=== PATIENT | female | born 1975 | race Caucasian/White ===

== ENCOUNTER 2017-08-06 13:40 | Outpatient (RCR) | payer OTHER, MEDICAID, SELFPAY ==
--- NOTE | 2017-08-06 16:11 | HP.OTFCE_ITS ---
HP OT Functional Capacity Eval - Task Lift Floor (Occasional 1-33% of Day): 15 lbs Floor (Frequent 34-66% of Day): 8 lbs Floor (Constant 67-100% of Day): negligible Floor PDL: Sedentary-Light Knee (Occasional 1-33% of Day): 15 lbs Knee (Frequent 34-66% of Day): 8 lbs Knee (Constant 67-100% of Day): negligible Knee PDL: Sedentary-Light Waist (Occasional 1-33% of Day): 15 lbs Waist (Frequent 34-66% of Day): 8 lbs Waist (Constant 67-100% of Day): negligible Waist PDL: Sedentary-Light Shoulder (Occasional 1-33% of Day): 15 lbs Shoulder (Frequent 34-66% of Day): 8 lbs Shoulder (Constant 67-100% of Day): negligible Shoulder PDL: Sedentary-Light Overhead (Occasional 1-33% of Day): 15 lbs Overhead (Frequent 34-66% of Day): 8 lbs Overhead (Constant 67-100% of Day): negligible Overhead PDL: Sedentary-Light - Reference Duration Sedentary Sedentary Light Light Light Medium Medium Medium Heavy Very Heavy Heavy Occasional (0-33% of day) Frequent (34-66% of day) Constant (67-100% of day) 10 # Negligible Negligible 15 # 8 # Negligible 20 # 10# Negli. 35 # 18 # 7 # 50 # 25 # 10 # 75 # 100 # >100 # 38 # 50 # >50 # 15 # 20 # >20 # - Patient Information Height: 1.6 m Weight:: 335 kg Hand Dominance: R - Medical History Medical History Including Restrictions: No medical restrictions noted at this time. - Diagnoses Diagnoses: PMHx: morbid obesity, h/o RA, chronic low back pain, h/o DVT, muscle spasms, fibromyalgia. Per Pt. report notes nerve damage in low back. Notes no new changes in medical status since last FCE. - Symptoms Symptoms: Pt. notes main symptom is pain in low back and B legs. Notes increased pain when standing. Stated on occassion will have numbness and tingling in B LE when standing. - Pain Pain: Pt. noted pain in sitting position prior to start of session 06/28. Pt. notes taking tyenold prior to coming to FCE. Not in pain management program. - Work History Work History: Pt. notes last job 2007. 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 Notes had to leave that job due to lack of ability to walk into work due to back pain. She further notes she went on disability after leaving job in 2007. 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 - ADLS ADLS: Pt. lives in house with parents. She notes father just had CVA and mother has dementia. She is helping care for elderly parents. No stairs to get into home, FFSU with basement. There are 15 steps to the basement if needing to go. Notes three steps through garage enterance. Notes backdoor has a ramp as father is in w/c. She is able to push dad in w/c. Notes walking is sometimes better pushing something. She notes she does cleaning, and has FFSU for laundry in [facility] she completes. Able to complete all ADls (I). Able to use walk-in shower with seat with mdo I. Does need to sit to shower. Notes that she is still driving, is able to grocery shopping at smaller store or [employer]. - Physical Examination Physical Examination: Pt., Aliyah, arrived for FCE on this date. She notes that she has h/o RA butdoes not consistently see rheumatologst. Her last FCE completed in 2014 and she has been on dsiability since 2007. Aliyah has h/o low back pain and geenralized arthtitis throughout body. She completed as tasks but needed increased breaks t/o session due to decreased endurance and SOB. Further performance can reviewed above and below. She has automation tender training from previous job. She would benefit pain management program and seeing trimming machine operator as some of pain symptoms may be related to RA and fibromyaglia. Performance today classifies he in Sendentary Light wrok category which appears to be improvement from last FCE in 2014 complete at [facility]. ROM: Pt. B UE ROM WFL. Notes increased pain in R shoulder at 2/10. B LE ROM is WFL. Knee flex and extension are limited due to increased soft tissue. She does have h/o RA. Currenty not seeing RA doctor at this time. Strength: B UE. deltoids: R 4-/5, L 4-/5. biceps: R 4-/5, L 4-/5. triceps: R 4/5, L 4/5. LE. Hip Flexors: R 3+/5 some increased hip pain, L 3+/5. Hamstrings: R 3/5, L 3/5. Hip adductors: R 3/5, L 3/5. Quadraceps: 3+/5, L 3+ /5. Dorsi flexion: 3+/5, L 3+/5 Right Chiller Operator Strength Average: 45.66 Left Chiller Operator Strength Average: 40.33 Right Lateral Pinch Average: 9.66 Left Lateral Pinch Average: 10.66 Right Tripod Pinch Average: 6.00 Left Tripod Pinch Average: 7.66 Sensation: Pt. notes that she got some numbness and tingling in hands post gripa dn pinch assessment. Notes some increased numbness and tingling at times in LE. R 2 nd 3.84, 3rd 3.22, 4th 3.61, 5th 3.22, thumb 3.61. L 2 nd 3.22, 3rd 3.61 , 4th 3.22, 5th 3.22, thumb 3.61 Fine Motor: FMC is intact and WFL. R: 23.20 s. L: 22.88 s Balance: Balance is G/F+. - Non Material Handling Activities Bendinx, 10x , needed seated break for 2x mins. Pain increased to 5/10 with need for seated break. Completed Squattinx unable to complete additonal reps. Notes unabel to complete more squats . Needed seated break post 3x squats. Increased pain in L knee 6/10 pain. Kneeling: Unable to kneel at this time. Reaching out/up: From seated position: 3x, 10x, 10x fast. R shoulder pain at 5 /10. From seated position: Reaching up: 3x, 10x, 10x fast. Some increased SOB. Pain in shoulder increased to 7/10. Able to obtain approximately 100 degrees. Walking: Completed 10 mins functional mobility around facility. Need 2-3 min break after 5 mins consistent walking. Increased pain in L knee at about 7-9 mins. Increased antalgic gait as pain increased. Discontinued at 7.5/10 pain when discontinuing task around 10 mins. Needs 5-7 mins seated break when back to OT area. Standin mins of standing prior to needing seated break. The knee pain over 7 /10, low back at 5/10. Sittin-40 mins. Could have sat longer. Leight shift as needed. No increased in pain while sitting. Notes most comofrtable position is a half reclined position. Climbing Stairs: Able to complete 10 stairs with us eof B hand rails. Completed ascention with alternating fot pattern and decentionw ith L LE lead. Increased pain and noted does not complete cosnsitently. - Dynamic Occasional Lifting Capacity Floor Lift: 15 lbs. Poor body mechanics of increased throacic flexion and decreased knee flexion. Increased lifting with straight leg to compensate for increased L knee pain. KARLY was good for lift. Pain at about 6/10. Performance classifies her at 'Sedentary Light' wrok category. Knee Lift: 15 lbs. Completed with fair body mechanics. Adquet hip, knee flexion observed. Lifted close to body and KARLY adquet at this time. Pain maintained at 6/10. Performance classifies her at 'Sedentary Light' wrok category. Waist Lift: 15 lbs. Completed with fair body mechanics. Some increased thoracic flexion during take off decreasing spinal alignment. After lift off she has increased trunk extension. Pain maintained at 6/10. Performance classifies her at 'Sedentary Light' wrok category. Shoulder Lift: 15 lbs. Completed with fair body mechanics. Some increased thoracic ext, increased cervical flexion. Pain maintained at 6/10. Performance classifies her at 'Sedentary Light' wrok category. Overhead Lift: 15 lbs. Good body mechanics. Some increased cervical flexion and holding of breath for moveemnt. Completed Carrying: Pt. refused to complete with box and worried about balance. Completed with 2x 10 lbs hand weights. 6/10 pain. Performance classifies her at ' Sedentary Light' wrok category.
--- NOTE | 2017-08-06 16:11 | HP.OTFCE.D ---
FCE D/C Summary - Discharge HERSON Aquiles FAUST was seen for a one time visit for an FCE on 08/06/17 and is discharged.
--- NOTE | 2017-08-07 12:11 | HP.OTFCE_ITS ---
HP OT Functional Capacity Eval - Task Lift Floor (Occasional 1-33% of Day): 15 lbs Floor (Frequent 34-66% of Day): 8 lbs Floor (Constant 67-100% of Day): negligible Floor PDL: Sedentary-Light Knee (Occasional 1-33% of Day): 15 lbs Knee (Frequent 34-66% of Day): 8 lbs Knee (Constant 67-100% of Day): negligible Knee PDL: Sedentary-Light Waist (Occasional 1-33% of Day): 15 lbs Waist (Frequent 34-66% of Day): 8 lbs Waist (Constant 67-100% of Day): negligible Waist PDL: Sedentary-Light Shoulder (Occasional 1-33% of Day): 15 lbs Shoulder (Frequent 34-66% of Day): 8 lbs Shoulder (Constant 67-100% of Day): negligible Shoulder PDL: Sedentary-Light Overhead (Occasional 1-33% of Day): 15 lbs Overhead (Frequent 34-66% of Day): 8 lbs Overhead (Constant 67-100% of Day): negligible Overhead PDL: Sedentary-Light Comments: See below for further details. - Work Activity/Posture Bending: Occasional Ability (1-33% of day) Comments: able to complete tasks in order to care for parents Squatting: Occasional Ability (1-33% of day) Comments: 1-10% Kneeling: No Ablility (0% of day) Comments: unable to complete at this time Reaching out: Frequent Ability (34-66% of day) Reaching up: Frequent Ability (34-66% of day) Sitting: Frequent Ability (34-66% of day) Walking: Occasional Ability (1-33% of day) Comments: 20-33% Standing: Occasional Ability (1-33% of day) Comments: 1-20% with seated breaks as needed - Reference Duration Sedentary Sedentary Light Light Light Medium Medium Medium Heavy Very Heavy Heavy Occasional (0-33% of day) Frequent (34-66% of day) Constant (67-100% of day) 10 # Negligible Negligible 15 # 8 # Negligible 20 # 10# Negli. 35 # 18 # 7 # 50 # 25 # 10 # 75 # 100 # >100 # 38 # 50 # >50 # 15 # 20 # >20 # - Patient Information Height: 1.6 m Weight:: 335 kg Hand Dominance: R - Medical History Medical History Including Restrictions: No medical restrictions noted at this time. - Diagnoses Diagnoses: PMHx: morbid obesity, h/o RA, chronic low back pain, h/o DVT, muscle spasms, fibromyalgia, disc degeneration in spine. Per Pt. report notes nerve damage in low back. Notes no new changes in medical status since last FCE in 2014. - Symptoms Symptoms: Pt. notes main symptom is pain in low back and B legs. Notes increased pain when standing. Stated on occassion will have numbness and tingling in B LE when standing. - Pain Pain: Pt. noted pain in sitting position prior to start of session 06/28. Pt. notes taking tylenol prior to coming to E. Not in pain management program. Aliyah further noted that she is not seeing a rhematologist consistently. She noted that for pain management doctor got switched and we really didn't see eye to eye. She has not seen pain management for about a year per Pt. report. Appears that pain management is able to be managed through tylenol and rest breaks at this time. May benefit from pain management and seeing sales representative printing supplies as some of pain is most likely RA as well as fibromyalgia related. - Work History Work History: Pt. notes last job 2007. 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 Notes had to leave that job due to lack of ability to walk into work due to back pain. She further notes she went on disability after leaving job in 2007. 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 - Behavioral Behavioral: Aliyah appeared to complete tasks to best of ability. She does at this time seem discouraged about her future after stating at end of FCE It's emabarassing I'm this tired after this and your not winded. When asked if needing additional time t/o session for breaks she noted I just want to get this over with. May benefit from further follow up to get into healthy program if willing to promote strength & endurance and help decrease SOB. She notes she is completing pool exercises at [facility] but recently is not going anywhere due to start of pool rennovations and noted I don't like crowds when I swim so I won' t go to the [employer] [facility]. She further noted that she is living with her elderly parents and is currently helping to care for them at this time. Notes that she currently unable to work as terrazzo tile maker due to inability to walk into work facility. She was able to walk back to OT which is about 180 feet. As well as completing at least four laps during functional mobility/walking around facility which is 340 feet per lap and 1360 feet total. Break needed after 2.5 laps or about 770 feet. See Walking section for further details as breaks are needed. She would benefit from endurance training as well as joint integrity education to manage pain. Aliyah further noted that she is not seeing a rhematologist consistently or pain management doctor at this time. She noted that for pain management doctor got switched and we really didn't see eye to eye. She has not seen pain management for about a year per Pt. report. Appears that pain managable through tylenol and rest break at this time. - ADLS ADLS: Pt. lives in house with parents. She notes father just had CVA and mother has dementia. She is helping care for elderly parents and cares for 1x son whom she noted has some sensory related issues. No stairs to enter into home, FFSU with basement. There are 15 steps to the basement if needing to go. Notes three steps through garage entrance. Notes backdoor has a ramp as father is in w /c. She is able to push dad in w/c. Notes walking is sometimes better pushing something. She notes she does cleaning, and has FFSU for laundry in which she completes. Able to complete all ADls (I). Able to use walk-in shower with seat with mod I. Does need to sit to shower. Notes that she is still driving, is able to grocery shopping at smaller store or [employer]. - Physical Examination Physical Examination: Pt., Aliyah, arrived for FCE on this date. She notes that she has h/o RA but does not consistently see sales representative printing supplies. Her last FCE completed in 2014 and she has been on disability since 2007. Aliyah has h/o low back pain and generalized arthritis throughout body. She completed tasks as tolerated but needed increased breaks t/o session due to decreased endurance and SOB. Further performance can be reviewed above and below. 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 She would potentially benefit pain management program and seeing sales representative printing supplies as some of pain symptoms may be related to RA and fibromyaglia. However, she has been managing with Tylenol which seems adequate at this time and potentially indicative that symptoms are not as severe as previously. Performance today classifies her in Sedentary Light work category which appears to be improvement from last FCE in 2015 completed at [facility]. She walked a total of approximately 1540 + feet on this date. That?s approximately .30 of a mile with breaks and about .15 mile without break based on today's performance. She would be able to walk into building, compensations as needed, to complete a sedentary light type of job. She already has training as terrazzo tile maker. See below for further performance. ROM: Pt. B UE ROM WFL. Notes increased pain in R shoulder at 210. B LE ROM is WFL. Knee flexion and extension are limited due to increased soft tissue. She does have h/o RA. Currenty not seeing RA doctor at this time. Strength: B UE. deltoids: R 4-/5, L 4-/5. biceps: R 4-/5, L 4-/5. triceps: R 4/5, L 4/5. LE. Hip Flexors: R 3+/5 some increased hip pain, L 3+/5. Hamstrings: R 3/5, L 3/5. Hip adductors: R 3/5, L 3/5. Quadraceps: 3+/5, L 3+ /5. Dorsi flexion: 3+/5, L 3+/5 Right National Park Ranger Strength Average: 45.66 Right National Park Ranger Strength Percentile: 71st Left National Park Ranger Strength Average: 40.33 Left National Park Ranger Strength Percentile: 68th Right Lateral Pinch Average: 9.66 Right Lateral Pinch Percentile: 10th Left Lateral Pinch Average: 10.66 Left Lateral Pinch Percentile: 25th Right Tripod Pinch Average: 6.00 Right Tripod Pinch Percentile: below 10th Left Tripod Pinch Average: 7.66 Left Tripod Pinch Percentile: 10th Comments: Increased numbness and tingling in hands post strength assessment. Notes nerve conduction noted no CTS. Sensation: Pt. notes that she got some numbness and tingling in hands post gripa dn pinch assessment. Notes some increased numbness and tingling at times in LE. R 2 nd 3.84, 3rd 3.22, 4th 3.61, 5th 3.22, thumb 3.61. L 2 nd 3.22, 3rd 3.61 , 4th 3.22, 5th 3.22, thumb 3.61. Sensation WFL. However, decreased sensation often indicative of the potetnial of cervical involvement as CTS has already been ruled out. Fine Motor: FMC is intact and WFL. R: 23.20 s. L: 22.88 s Balance: Balance is G/F+. No LOB noted during session. Use of external support for squatting. - Non Material Handling Activities Bendinx, 10x , needed seated break for 2x mins. Pain increased to 5/10 with need for seated break. Completed with fair body mechanics. Soem increased retrograde leaning to increase bend. No LOB. Squattinx unable to complete additonal reps. Notes unable to complete more squats at this time. Needed seated break post 3x squats. Increased pain in L knee 6/10 pain. Kneeling: Pt. refused as noted unable to kneel at this time. Notes L knee bone on bone and cause increased pain. Task excluded at this time. Reaching out/up: From seated position: 3x, 10x, 10x fast. R shoulder pain at 5 /10. From seated position: Reaching up: 3x, 10x, 10x fast. Some increased SOB. Pain in shoulder increased to 7/10. Able to obtain approximately 100 degrees. Walking: Completed 10 mins functional mobility without device around facility at her own pace. Able to complete walking to OT area at start of session which is about 180 feet. Completed total of 4 laps at 340 feet per laps during 10 mins walking tasks during FCE. Needed 2-3 min break after 5 mins consistent walking for about 2.5 laps around facility for approximately 770 feet. Increased pain in L knee at about 7-9 mins into task. Increased antalgic gait as pain increased. Discontinued at 7.5/10 pain around 10 mins. Needs 5-7 mins seated break when back to OT area. She was able to walk back to OT which is about 180 feet. As well as completing at least four laps during functional mobility/walking around facility which is 340 feet per lap and 1360 feet total with additional distance for walking to and from car. She would benefit from endurance training to help decrease SOB to promote joint protection techniques. She is able to walk through short distances at grocery store. It can be inferred at she could walk into sedentary light type of work position at this time. Standin mins of standing prior to needing seated break. Able to toelrated 5 min dynmaic movement during walking prior to break. Knee pain over 7/10, low back at 5/10. Would be able to complete job in which sitting is primary position and has ability to stand to relieve low back pain as needed. Sittin-40 mins. Could have sat longer. Weight shift as needed. No increased in pain while sitting. Notes most comfortable position is seated at half reclined position. Climbing Stairs: Able to complete 10 stairs with us eof B handrails. Completed asending 10 stairs with alternating foot pattern and decending 10 stairs with L LE lead. Increased pain L knee and noted does not complete consistently. - Dynamic Occasional Lifting Capacity Floor Lift: 15 lbs. Poor body mechanics of increased throacic flexion and decreased knee flexion. Increased lifting with straight leg to compensate for increased L knee pain. KARLY was good for lift. Pain at about 6/10. Performance classifies her at 'Sedentary Light' wrok category. Knee Lift: 15 lbs. Completed with fair body mechanics. Adequate hip, knee flexion observed. Lifted close to body and KARLY adquet at this time. Pain maintained at 6/10. Performance classifies her at 'Sedentary Light' wrok category. Waist Lift: 15 lbs. Completed with fair body mechanics. Some increased thoracic flexion during take off decreasing spinal alignment. After lift off she has increased trunk extension. Pain maintained at 6/10. Performance classifies her at 'Sedentary Light' wrok category. Shoulder Lift: 15 lbs. Completed with fair body mechanics. Some increased thoracic ext, increased cervical flexion. Pain maintained at 6/10. Performance classifies her at 'Sedentary Light' wrok category. Overhead Lift: 15 lbs. Good body mechanics. Some increased cervical flexion and holding of breath for movement. Completed adequate movements to complete task. Carrying: Pt. refused to complete with box and worried about balance. No LOB noted during session. Completed with 2x 10 lbs hand weights one per hand holding at sides. 6/10 pain. Performance classifies her at 'Sedentary Light' work category. Comments: Increased fatigue noted at the end of the session with need for 5-7 min break before walking out to car.
== END 2017-08-06 19:00 | disposition home or self-care (01) ==
LOC: OT 13:40
PROVIDERS: Family Provider Family Medicine; PCP Family Medicine; Visit Provider Family Medicine
DX: M54.9 Dorsalgia, unspecified (principal)
CPT/HCPCS: 97750

== ENCOUNTER → 2018-01-15 13:50 | Outpatient (CLI) | payer OTHER, MEDICAID, SELFPAY ==
[2018-01-15 16:03] LABS: Vitamin D,25 Hydroxy 15.8 ng/mL (29.95-100.01)
[2018-01-15 16:08] LABS: Anion Gap 8 (5-15); BUN 11 mg/dL (7-18); BUN/Creat Ratio 14.6 RATIO (10-20); Chloride 109 mmol/L (98-107); Cholesterol 150 mg/dL (200); Creatinine, Serum 0.75 mg/dL (0.55-1.02); EST Glomerular Filtration Rate 89 mL/min (>60); Est Glom Filt Rate - Afr Amer 107 mL/min (>60); Glucose 86 mg/dL (74-106); High Density Lipoprotein 45 mg/dL; Potassium 3.9 mmol/L (3.5-5.1); Sodium Level 141 mmol/L (136-145); Thyroid Stim Hormone (TSH) 1.83 uIU/mL (0.358-3.74); Triglycerides 91 mg/dL; Very Low Density Lipoprotein 18 mg/dL (5-40)
== END ==
PROVIDERS: Family Provider Family Medicine; PCP Family Medicine; Visit Provider Family Medicine
DX: Z00.00 Encounter for general adult medical examination without abnormal findings (principal)
CPT/HCPCS: 36415; 80048; 80061; 82306; 84443

== ENCOUNTER → 2018-03-23 15:36 | Outpatient (CLI) | payer OTHER, MEDICAID, SELFPAY | PROVIDERS: Family Provider Family Medicine; PCP Family Medicine; Referring Provider Otolaryngology Otolaryngology/Facial Plastic Surgery; Visit Provider Otolaryngology Otolaryngology/Facial Plastic Surgery | DX: J32.9 Chronic sinusitis, unspecified (principal) | CPT/HCPCS: 87070; 87205 ==

== ENCOUNTER → 2018-08-21 13:40 | Outpatient (CLI) | payer OTHER, MEDICAID, SELFPAY ==
--- NOTE | 2018-08-21 13:44 | BI_ITS ---
MAMMOGRAPHY - BILATERAL SCREENING 3-D TOMOSYNTHESIS REASON FOR EXAM: Female, 43 years old. Bilateral Screening 3-D tomosynthesis PERTINENT HISTORY: Family history of 2 maternal aunts with breast cancer at ages 60-70 days. 2 paternal aunts with breast cancer at age 40 to 50s.. TECHNIQUE: 2-D mammograms and 3-D Tomosynthesis of the breast (s) were performed. CAD was performed. COMPARISON: November 02, 2013. FINDINGS: The breast composition is composed of scattered fibroglandular density. Scattered benign calcifications are seen. No dense spiculated masses or suspicious microcalcifications are identified. No architectural distortion is identified. There is no skin thickening or retraction. There has been no significant change since the prior study. BI/SCREENING MAMM (CAD), BILAT IMPRESSION: No mammographic signs of malignancy. Routine yearly mammograms recommended. ASSESSMENT CATEGORY: BIRADS Category 1: Negative. A letter regarding these results will be sent to the patient by the facility within 30 days. FOLLOW UP RECOMMENDATION: Yearly follow up mammogram recommended. (A) Approximately 10% of breast cancers are not detected by mammography. A normal mammogram should not delay biopsy of a clinically suspicious abnormality. Electronically Signed: Sanjiv Hadley MD at 16:32 EDT , Service support ,
== END ==
PROVIDERS: Family Provider Family Medicine; PCP Family Medicine; Visit Provider Obstetrics & Gynecology Gynecology
DX: Z12.31 Encounter for screening mammogram for malignant neoplasm of breast (principal)
CPT/HCPCS: 77063; 77067

== ENCOUNTER → 2019-01-18 10:57 | Outpatient (CLI) | payer OTHER, MEDICAID, SELFPAY ==
[2019-01-18 13:06] LABS: Vitamin D,25 Hydroxy 25.4 ng/mL (29.95-100.01)
[2019-01-18 13:14] LABS: ALB/GLOB Ratio 0.8 RATIO (0.9-2.4); AST(SGOT) 18 U/L (15-37); Alanine Aminotransfer ALT/SGPT 18 U/L (13-56); Albumin, Serum 3.5 g/dL (3.2-5.0); Alkaline Phosphatase 77 U/L (45-117); Anion Gap 9 (5-15); BUN 8 mg/dL (7-18); BUN/Creat Ratio 9.6 RATIO (10-20); Calcium,Total 8.9 mg/dL (8.5-10.1); Chloride 104 mmol/L (98-107); Cholesterol 173 mg/dL (200); Creatinine, Serum 0.84 mg/dL (0.55-1.02); EST Glomerular Filtration Rate 78 mL/min (>60); Est Glom Filt Rate - Afr Amer 95 mL/min (>60); Globulin 4.5 g/dL (2.2-4.2); Glucose 82 mg/dL (74-106); High Density Lipoprotein 53 mg/dL; Potassium 3.5 mmol/L (3.5-5.1); Sodium Level 136 mmol/L (136-145); Thyroid Stim Hormone (TSH) 3.53 uIU/mL (0.358-3.74); Triglycerides 110 mg/dL; Very Low Density Lipoprotein 22 mg/dL (5-40)
== END ==
PROVIDERS: Family Provider Family Medicine; PCP Family Medicine; Referring Provider Family Medicine; Visit Provider Family Medicine
DX: Z00.00 Encounter for general adult medical examination without abnormal findings (principal); E66.01 Morbid (severe) obesity due to excess calories
CPT/HCPCS: 36415; 80053; 80061; 82306; 84443

== ENCOUNTER → 2019-09-15 14:04 | Outpatient (CLI) | payer OTHER, MEDICAID, SELFPAY ==
[2019-09-15 15:55] LABS: Anion Gap 8 (5-15); BUN 8 mg/dL (7-18); BUN/Creat Ratio 10.9 RATIO (10-20); Chloride 103 mmol/L (98-107); Creatinine, Serum 0.74 mg/dL (0.55-1.02); EST Glomerular Filtration Rate 91 mL/min (>60); Est Glom Filt Rate - Afr Amer 110 mL/min (>60); Glucose 88 mg/dL (74-106); Magnesium 1.9 mg/dL (1.6-2.6); Sodium Level 137 mmol/L (136-145)
== END ==
PROVIDERS: PCP Family Medicine; Referring Provider Family Medicine; Visit Provider Family Medicine
DX: G43.909 Migraine, unspecified, not intractable, without status migrainosus (principal)
CPT/HCPCS: 36415; 80048; 83735

== ENCOUNTER → 2020-01-19 11:00 | Outpatient (CLI) | payer OTHER, MEDICAID, SELFPAY ==
[2020-01-19 10:27] VITALS: BMI 59.0
[2020-01-19 12:32] LABS: Absolute Lymphocyte Count 2.12 X10^3/uL (0.83-4.51); Absolute Neutrophil Count 6.1 X10^3/uL (2.0-7.7); Basophil# 0.02 X10^3/uL; Basophil% 0.2 % (0-1); Eosinophil# 0.12 X10^3/uL; Eosinophils% 1.4 % (0-5); Hematocrit 39.9 % (37-47); Lymphocyte # 2.12 X10^3/ul (4.0); Lymphocyte % 23.9 % (19-41); Mean Corp Hgb Conc 32.6 g/dL (32-36); Mean Corpuscular Hgb 28.9 pg (27.0-32.0); Mean Corpuscular Volume 88.7 fL (81-99); Mean Platelet Vol. 12.5 fl (6.2-12.0); Monocyte% 5.6 % (0-10); NRBC Flagged by Analyzer 0 % (0-5); Neutrophil # 6.06 X10^3/uL (2.7-7.7); Neutrophil % 68.4 % (47-70); Platelet Count 188 K/mm3 (150-450); RBC Distribution Width CV 12.5 % (11.6-14.6); RBC Distribution Width SD 40.5 fl (35.1-43.9); White Blood Count 8.9 K/mm3 (4.4-11.0)
[2020-01-19 12:56] LABS: ALB/GLOB Ratio 0.8 RATIO (0.9-2.4); AST(SGOT) 14 U/L (15-37); Alanine Aminotransfer ALT/SGPT 15 U/L (13-56); Albumin, Serum 3.4 g/dL (3.2-5.0); Alkaline Phosphatase 73 U/L (45-117); Anion Gap 4 (5-15); BUN 8 mg/dL (7-18); BUN/Creat Ratio 9.6 RATIO (10-20); Calcium,Total 8.9 mg/dL (8.5-10.1); Chloride 108 mmol/L (98-107); Creatinine, Serum 0.83 mg/dL (0.55-1.02); EST Glomerular Filtration Rate 78 mL/min (>60); Est Glom Filt Rate - Afr Amer 95 mL/min (>60); Globulin 4.2 g/dL (2.2-4.2); Glucose 82 mg/dL (74-106); Potassium 4.1 mmol/L (3.5-5.1); Protein, Total 7.6 g/dL (6.4-8.2); Sodium Level 138 mmol/L (136-145); Thyroid Stim Hormone (TSH) 3.31 uIU/mL (0.358-3.74)
== END ==
PROVIDERS: PCP Internal Medicine; Referring Provider Internal Medicine; Visit Provider Internal Medicine
DX: F32.9 Major depressive disorder, single episode, unspecified (principal); F41.9 Anxiety disorder, unspecified; E03.9 Hypothyroidism, unspecified
CPT/HCPCS: 36415; 80053; 84443; 85025

== ENCOUNTER → 2020-02-16 14:08 | Outpatient (CLI) | payer OTHER, MEDICAID, SELFPAY ==
[2020-01-19 10:27] VITALS: BMI 59.0
--- NOTE | 2020-02-16 14:10 | RAD_ITS ---
STUDY: X-RAY - LEFT KNEE REASON FOR EXAM: Female, 44 years old. Left knee pain, and stiffness TECHNIQUE: 4 view(s) of the knee. COMPARISON: None. FINDINGS: Normal visualized distal femur. Normal visualized proximal tibia and fibula. Normal proximal tibiofibular articulation. There is moderate degenerative arthrosis of the medial femorotibial compartment with moderate joint space narrowing. There is mild degenerative arthrosis of the lateral femorotibial compartment. There is moderate degenerative arthrosis of the patellofemoral articulation. The soft tissue structures are unremarkable. RAD/Knee 4 or More Views IMPRESSION: Tricompartmental arthrosis, no demonstrated fracture or suspicious osseous lesion Electronically Signed: Angelito Ward MD at 17:05 EDT , Service support ,
== END ==
PROVIDERS: PCP Internal Medicine; Referring Provider Internal Medicine; Visit Provider Internal Medicine
DX: M17.12 Unilateral primary osteoarthritis, left knee (principal)
CPT/HCPCS: 73564

== ENCOUNTER → 2020-06-05 14:25 | Outpatient (CLI) | payer OTHER, MEDICAID, SELFPAY ==
[2020-06-05 13:46] VITALS: BMI 69.4
[2020-06-05 15:43] LABS: Vitamin D,25 Hydroxy 30.3 ng/mL
[2020-06-05 15:50] LABS: Cholesterol 162 mg/dL (200); High Density Lipoprotein 46 mg/dL; Triglycerides 88 mg/dL; Very Low Density Lipoprotein 18 mg/dL (5-40)
== END ==
PROVIDERS: PCP Internal Medicine; Referring Provider Internal Medicine; Visit Provider Internal Medicine
DX: E03.9 Hypothyroidism, unspecified (principal); E55.9 Vitamin D deficiency, unspecified; E66.01 Morbid (severe) obesity due to excess calories
CPT/HCPCS: 36415; 80061; 82306

== ENCOUNTER 2020-07-05 13:38 | Outpatient (RCR) | payer OTHER, MEDICAID, SELFPAY ==
[2020-06-05 13:46] VITALS: BMI 69.4
--- NOTE | 2020-07-12 17:57 | HP.FCE ---
Floor PDL: No Ability Knee (Occasional 1-33% of Day): 15# Knee (Frequent 34-66% of Day): 8# Knee (Constant 67-100% of Day): NA Knee PDL: Sedentary-Light Waist (Occasional 1-33% of Day): 15# Waist (Frequent 34-66% of Day): 8# Waist (Constant 67-100% of Day): NA Waist PDL: Sedentary-Light Shoulder (Occasional 1-33% of Day): 15# Shoulder (Frequent 34-66% of Day): 8# Shoulder (Constant 67-100% of Day): NA Shoulder PDL: Sedentary-Light Overhead (Occasional 1-33% of Day): 10# Overhead (Frequent 34-66% of Day): 8# Overhead (Constant 67-100% of Day): NA Overhead PDL: Sedentary-Light Comments: pt tested at sedentary- light physical demand level Bending: Occasional Ability (1-33% of day) Comments: low occasional ability Squatting: No Ablility (0% of day) Kneeling: No Ablility (0% of day) Reaching out: Occasional Ability (1-33% of day) Reaching up: Occasional Ability (1-33% of day) Sitting: Frequent Ability (34-66% of day) Walking: Occasional Ability (1-33% of day) Standing: Occasional Ability (1-33% of day) Comments: low occasional ability Duration Sedentary Sedentary Light Light Light Medium Medium Medium Heavy Very Heavy Heavy Occasional (0-33% of day) Frequent (34-66% of day) Constant (67-100% of day) 10 # Negligible Negligible 15 # 8 # Negligible 20 # 10# Negli. 35 # 18 # 7 # 50 # 25 # 10 # 75 # 100 # >100 # 38 # 50 # >50 # 15 # 20 # >20 # Height: 1.6 m Weight:: 177.808 kg Hand Dominance: right Medical History Including Restrictions: PMHx: morbid obesity, h/o RA, chronic low back pain, h/o DVT, muscle spasms, fibromyalgia, disc degeneration in spine. Per Pt. report notes nerve damage in low back. pt states her right knee continues to give her difficulty with pain and mobility. States she had her right knee injected but still is having difficulty. pt states her RA does not take her insurance but looking into getting a new dr. for her RA. pt is not seeing a pain mtg dr currently. pt does see chiropractor 2 x a week. but pt moved and has not returned this month to chiropractor. Pt does not exercise on a regular basis. Diagnoses: Seasonal allergies (Chronic). Hypothyroidism (Chronic). Anxiety (Chronic). Thyroid disease (Chronic). History of pneumonia (Acute). Neuropathy (Chronic). Migraine (Chronic). History of blood clots (Acute). Asthma (Chronic). Arthritis (Chronic) Symptoms: Constant pain. Low back. bilateral hip pain. bilateral knee pain. right shoulder. swelling in LE. Notes pain does not improve with position. Stated on occassion will have numbness and tingling in B LE when standing. Pain: pt states currently pain is 7/10 with medication. Work History: Pt. notes last year that she worked was in 2007. 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 Notes had to leave that job due to lack of ability to walk into work due to back pain. She further notes she went on disability after leaving job in 2007. Behavioral: Pt was cooperative throughout assessment ADLS: pt recently moved to [place]. Pt. lives in ranch home with two entry steps. pts has 17-year-old son whom pt states helps him with everything. Pt states son does all grocery shopping, cleaning. laundry is on first floor. There are 15 steps to the basement if needing to go. Pt states she uses rollator in home, has straight cane, shower chair with long handle shower head. pts states she does all her self -care at modified independent level. pt states son helps with any carry tasks as she cannot carry anything Infront of her body. Pt states she does clean and will do her laundry. Pt able to use walk-in shower with seat with modified independence. Notes that she is still driving short distances. states she does use online ordering for groceries and son pickling solution maker for her carries in home. pt state any meal prep she sits to prepare. ROM: Pt. B UE ROM WFL. B LE ROM is limited due to adipose tissue. Knee flexion and extension are limited due to increased adipose soft tissue. She does have h/o RA. Currently not seeing RA doctor. Strength: B UE. deltoids: R 4/5, L 4/5. biceps: R 4/5, L 4/5. triceps: R 4/5, L 4/5. LE. Hip Flexors: R 3+/5 some increased hip pain, L 3+/5. Hamstrings: R 3/5, L 3/5. Hip adductors: R 3/5, L 3/5. Quadraceps: 3+/5, L 3+/5. pt demonstarates with generalized weakness Right Pet Care Technician Strength Average: 28.33 Right Pet Care Technician Strength Percentile: .2% Left Pet Care Technician Strength Average: 28.33 Left Pet Care Technician Strength Percentile: .8% Right Lateral Pinch Average: 7.33 Right Lateral Pinch Percentile: <10% Left Lateral Pinch Average: 6.66 Left Lateral Pinch Percentile: <10% Right Tripod Pinch Average: 4.00 Right Tripod Pinch Percentile: <10% Left Tripod Pinch Average: 4.00 Left Tripod Pinch Percentile: <10% Sensation: Monofilament sensory testing. right all digits 2.83 = interpretation Normal sensation. left thumb 3.22 = interpretation Diminished light touch. left IF 3.22 = interpretation diminished light touch. left MF 2.83 = interpretation Normal sensation. left RF 2.83 = interpretation Normal sensation. left LF 2.82 = interpretation Normal sensation Fine Motor: 9 hole peg testing. right 18.83 = 50% for her age. left 19.28 = 50% for her age Balance: Balance is G/F+. No noted loss of balanced during session. Pt did use of external support for with tasks Bending: pt demo the ability to bend forward three times, and ten times. pt states with task left knee pain 8/10 during task but after tasks and she could sit pain was better 7/10. pt can bend forward on a low occasional ability. Pt increase in back pain. Squatting: Unable Kneeling: unable Reaching out/up: pt demo the ability to reach up/out three times, ten times and ten times rapidly from seated position. pt did state right shoulder pain 7/10. pt can reach up/out on a occasional ability seated. Walking: pt ambulates with a antalgig gait pattern. Pt ambulated 400 feet initially prior to stopping for a rest, pt completed total of 951 feet and demo with increase SOB with task. At end of session pt able to abulate 175 feet prior to needing to stop for a break. Pt limited with ambulation distance due to pain and SOB. Total ambulation distance 1126 feet. pt can ambulate on a occasional ability. Standing: pt demo the ability to stand for 3 min shifting body weight-pt can stand on a low occasional ability. Sittin-40 mins. Could have sat longer. Weight shift as needed. No increased in pain while sitting. Notes most comfortable position is seated at half reclined position. pt can sit on a frequent ability Climbing Stairs: Refused due to knee pain and back Floor Lift: refused due to knee pain Knee Lift: pt demonstrated the ability to lift 15# maximally from this level with fair lifting mechanics. Waist Lift: pt demonstrated the ability to lift 15# maximally from this level with fair lifting mechanics. Shoulder Lift: pt demonstrated the ability to lift 15# maximally from this level with fair lifting mechanics. Overhead Lift: pt demonstrated the ability to lift 10# maximally from this level with fair lifting mechanics Carrying: pt demo the ability to carry 10# in right and left hand for 15 feet. Comments: pt SOB throughout assesment and required frequent rest periods for 2-3 min before initiating another assesment task.
--- NOTE | 2020-07-12 17:57 | HP.OTFCE.D ---
FCE D/C Summary - Discharge HERSON MORATAYA was seen for a one time visit for an FCE on 07/05/20 and is discharged.
== END 2020-07-05 19:00 | disposition home or self-care (01) ==
LOC: OT 13:38
PROVIDERS: PCP Internal Medicine; Referring Provider Internal Medicine; Visit Provider Internal Medicine
DX: M19.90 Unspecified osteoarthritis, unspecified site (principal); E66.01 Morbid (severe) obesity due to excess calories; Z68.44 Body mass index [BMI] 60.0-69.9, adult; R26.2 Difficulty in walking, not elsewhere classified
CPT/HCPCS: 97750